=== PATIENT | female | born 1980 | race Two or more races ===

== ENCOUNTER 2016-09-11 11:00 | Emergency (ER) | payer OTHER ==
[~2016-09-11] VITALS: Ht 154.9 cm; Wt 57.2 kg
[2016-09-11 11:20] VITALS: BP 105/67
[2016-09-11] MEDS ORDERED: IBUPROFEN 800 MG TAB PO ONE (13:15)
== END 2016-09-11 13:16 | disposition home or self-care (01) ==
LOC: ER 11:06
DX: J01.00 Acute maxillary sinusitis, unspecified (principal); J03.90 Acute tonsillitis, unspecified; E07.9 Disorder of thyroid, unspecified; Z90.49 Acquired absence of other specified parts of digestive tract

== ENCOUNTER 2017-07-24 12:29 | Emergency (ER) | payer OTHER ==
[~2017-07-24] VITALS: Ht 157.5 cm; Wt 55.3 kg
[2017-07-24 12:36] VITALS: BP 105/66
== END 2017-07-24 17:01 | disposition left against medical advice (07) ==
LOC: ER 12:29
DX: R60.9 Edema, unspecified (principal)

== ENCOUNTER 2020-02-02 23:15 | Emergency (ER) | payer MEDICAID, OTHER ==
[~2020-02-02] VITALS: Ht 157.5 cm; Wt 63.5 kg
[2020-02-02 23:45] VITALS: BP 106/58
== END 2020-02-03 02:02 | disposition home or self-care (01) ==
LOC: ER 23:15
DX: B35.4 Tinea corporis (principal); Z90.49 Acquired absence of other specified parts of digestive tract

== ENCOUNTER 2022-03-02 19:21 | Emergency (ER) | payer MEDICAID ==
[~2022-03-02] VITALS: Ht 157.5 cm; Wt 59.1 kg
[2022-03-02 19:26] VITALS: BP 120/80
== END 2022-03-02 21:30 | disposition left against medical advice (07) ==
LOC: EDBD 19:21 → EDUNIT# 19:21 → ER 19:24
DX: M25.561 Pain in right knee (principal); Z53.21 Procedure and treatment not carried out due to patient leaving prior to being seen by health care provider; Y08.89XA Assault by other specified means, initial encounter; Y93.89 Activity, other specified; Y92.89 Other specified places as the place of occurrence of the external cause; Y99.8 Other external cause status
CPT/HCPCS: 73564